=== PATIENT | female | born 1985 | race Caucasian/White ===

== ENCOUNTER 2017-07-24 10:32 | Emergency (ER) | payer OTHER, BC ==
[~2017-07-24] VITALS: Ht 172.7 cm; Wt 70.5 kg
[~2017-07-24 10:32] MED LIST: ACYC-202 PO; LACTC PO; MUPI15CR TOP; PYRI25TA4 PO
[2017-07-24 10:38] VITALS: BP 112/76
[2017-07-24] MEDS ORDERED: FLUC150T PO (10:40)
[2017-07-24] MEDS ORDERED: CEPH-571 PO (10:40)
[2017-07-24] MEDS ORDERED: LIDO20SO16 PO (10:40)
== END 2017-07-24 11:07 | disposition home or self-care (01) ==
LOC: ER 10:33
DX: J02.9 Acute pharyngitis, unspecified (principal); Z88.2 Allergy status to sulfonamides; Z88.1 Allergy status to other antibiotic agents; Z88.6 Allergy status to analgesic agent; Z79.899 Other long term (current) drug therapy; Z90.49 Acquired absence of other specified parts of digestive tract; Z90.89 Acquired absence of other organs
CPT/HCPCS: 87081; 87880; 99284